=== PATIENT | male | born 1965 | race Two or more races ===

== ENCOUNTER 2021-01-28 23:04 | Emergency (ER) | payer SELFPAY ==
[~2021-01-28] VITALS: Ht 167.6 cm; Wt 81.6 kg
--- NOTE | 2021-01-28 23:29 | NUR ---
PATIENT [id number] FROM [facility] C/O ABDOMINAL PAIN AT OLD INCISION SITE. PATIENT ALERT AND ORIENTED X3. AMBULATORY BUT BROUGHT IN ON A WHEELCHAIR. PRESENTS WITH NON LABORED BREATHING.
--- NOTE | 2021-01-28 23:30 | NUR ---
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
--- NOTE | 2021-01-28 23:49 | NUR ---
PT TO CT VIA JULIANNA
[2021-01-29] MEDS ORDERED: IBUPROFEN 400 MG TABLET ONE (00:16)
[2021-01-29] MEDS ORDERED: IBUPROFEN 400 MG TABLET PO ONE (00:30)
[2021-01-29 00:37] LABS: BASOPHILS # (AUTO) 0.1 K/uL (0.0-0.2); EOSINOPHILS % (AUTO) 0.8 % (0.0-6.0); HEMATOCRIT 45 % (39-51); LYMPHOCYTES # (AUTO) 0.9 K/uL (0.8-4.8); LYMPHOCYTES % (AUTO) 8.2 % (20.0-44.0); MEAN CORPUSCULAR HGB CONC 34 g/dl (31.0-36.0); MEAN CORPUSCULAR VOLUME 94 fL (80-96); MONOCYTES # (AUTO) 0.8 K/uL (0.1-1.30); MONOCYTES % (AUTO) 7.6 % (2.0-12.0); NEUTROPHILS # (AUTO) 8.7 K/uL (1.8-8.9); NEUTROPHILS % (AUTO) 82.4 % (43.0-81.0); PLATELET COUNT (AUTO) 213 K/uL (150-450); RED BLOOD CELL COUNT(AUTO) 4.73 MIL/uL (4.5-6.0); WHITE BLOOD COUNT (AUTO) 10.5 K/uL (4.3-11.0)
[2021-01-29 00:52] LABS: CALCIUM, SERUM 8.2 mg/dL (8.5-10.1); CREATININE 1.1 mg/dL (0.6-1.3); POTASSIUM 3.9 mmol/L (3.5-5.1)
[2021-01-29] MEDS ORDERED: INSULIN REGULAR, HUMAN 100 UNIT/ML 10 ML VIAL SQ ONE (01:00)
[2021-01-29] MEDS ORDERED: INSULIN REGULAR, HUMAN 100 UNIT/ML 10 ML VIAL ONE (01:10)
[2021-01-29 01:27] LABS: ALBUMIN 3.6 g/dL (3.4-5.0); BILIRUBIN,DIRECT 0.1 mg/dL (0.0-0.2); BILIRUBIN,TOTAL 0.3 mg/dL (0.2-1.0); TOTAL PROTEIN, SERUM 8.3 g/dL (6.4-8.2)
[2021-01-29 01:30] LABS: BILIRUBIN,URINE NEGATIVE (NEGATIVE); COLOR,URINE YELLOW (YELLOW); LEUKOCYTE ESTERASE ,URINE NEGATIVE (NEGATIVE); NITRITE, URINE NEGATIVE (NEGATIVE); PROTEIN,URINE TRACE mg/dl (NEGATIVE); UGLUCOSE >=1000 mg/dL (NEGATIVE); UROBILINOGEN,URINE 0.2 EU/dL (0.2)
[2021-01-29] MEDS ORDERED: IV NS 0.9% 1,000 ML BAG IV ONE (01:30)
[2021-01-29 01:32] LABS: ABG BASE EXCESS -5.5 mmol/L; ABG PCO2 33.8 mmHg (35.0-45.0); ABG PH 7.364 (7.350-7.450); ABG PO2 77.9 mmHg (75.0-100.0); COHb 0.4 % (0.5-1.5); MetHb 0.5 % (0.0-1.5); O2Hb 94.1 % (94.0-97.0); SITE, ABG Right Radial; VENT MODE, BG ROOM AIR
[2021-01-29 01:41] LABS: BACTERIA,URINE None seen /HPF (None Seen); RBC,URINE 0-2 /HPF (0-2); SQUAMOUS EPITHELIAL CELL,UR Few /HPF (None Seen); WBC,URINE 0-2 /HPF (0-3)
[2021-01-29 02:42] VITALS: BP 126/76
--- NOTE | 2021-01-29 02:42 | NUR ---
IV removed. Catheter intact and site benign. Pressure and 4x4 applied to site. No bleeding noted.
--- NOTE | 2021-01-29 02:42 | NUR ---
Patient discharged to home in stable condition. Written and verbal after care instructions given. Patient verbalizes understanding of instruction. Pt ambulated out of ED. VSS.
== END 2021-01-29 02:42 | disposition home or self-care (01) ==
LOC: ER 23:07 → EDBD 23:07 → ER 01-29 02:42
DX: K43.2 Incisional hernia without obstruction or gangrene (principal); E11.65 Type 2 diabetes mellitus with hyperglycemia; Z59.00 Homelessness unspecified
CPT/HCPCS: 36415; 36600 ×2; 74176; 80048; 80076; 81001; 82010; 82803; 82962; 83690; 85025; 85730; 96360; 96372; 99284; J1815